=== PATIENT | female | born 1990 | race Caucasian/White ===

== ENCOUNTER 2018-07-18 22:15 | Emergency (ER) | payer OTHER ==
[~2018-07-18] VITALS: Ht 160 cm; Wt 48.0 kg
--- NOTE | 2018-07-18 22:22 | NUR ---
CALLED FOR TRIAGE. IN RESTROOM.
[2018-07-18] MEDS ORDERED: ONDANSETRON 2MG/ML, 2ML ONE (22:45)
--- NOTE | 2018-07-18 22:46 | NUR ---
Pt reports diarrhea since sat, n/v, seen at [facility] clinic today, labs drawn, no results to pt yet. Pt reports increasingly worse diarrhea, n/v. To restroom for stool sample at this time.
[2018-07-18] MEDS ORDERED: ONDANSETRON 2MG/ML, 2ML IVPush ONE (23:00)
[2018-07-18] MEDS ORDERED: SODIUM CHLORIDE FLUSH 10ML SYR IVF ONE (23:00)
[2018-07-18] MEDS ORDERED: SODIUM CHLORIDE 0.9% 1,000ML IVBOLUS ONE (23:00)
[2018-07-18 23:15] LABS: BASOPHILS # (AUTO) 0.03 x10^3/uL (0-0.1); BASOPHILS % (AUTO) 0 % (0-1); EOSINOPHILS # (AUTO) 0.07 x10^3/uL (0-0.4); EOSINOPHILS % (AUTO) 1 % (1-7); LYMPHOCYTES % (AUTO) 13 % (22-44); MD NO; MEAN CORPUSCULAR HEMOGLOBIN 29.7 pg (27.0-34.8); MEAN CORPUSCULAR HGB CONC 33.2 g/dL (32.4-35.8); MEAN CORPUSCULAR VOLUME 89.6 fL (80-100); MEAN PLATELET VOLUME 8.7 fL (7.4-10.4); MONOCYTES # (AUTO) 0.79 x10^3/uL (0.2-0.8); MONOCYTES % (AUTO) 12 % (2-9); NEUTROPHILS # (AUTO) 5.12 x10^3/uL (1.8-6.8); NEUTROPHILS % (AUTO) 74 % (42-75); PLATELET COUNT 209 x10^3/uL (130-400); RED BLOOD COUNT 4.88 x10^6/uL (3.82-5.3); RED CELL DISTRIBUTION WIDTH 13.4 % (9.6-15.2)
[2018-07-18 23:23] LABS: ALANINE AMINOTRANSFERASE 17 U/L (12-78); ALBUMIN 4.1 g/dL (3.4-5.0); ANION GAP 10 mmol/L (5-15); CALCIUM 8.5 mg/dL (8.5-10.1); CHLORIDE 105 mmol/L (98-107)
[2018-07-18 23:27] LABS: ALKALINE PHOSPHATASE 39 U/L (45-117); BILIRUBIN,TOTAL 0.8 mg/dL (0.2-1.0); TOTAL PROTEIN 6.9 g/dL (6.4-8.2)
[2018-07-18 23:38] LABS: MICROSCOPIC AUTO
--- NOTE | 2018-07-18 23:42 | NUR ---
Fluids complete, pt denies any needs/concerns, updated on wait time for labs.
[2018-07-18 23:45] LABS: CULTURE INDICATED? NO
[2018-07-19 00:25] LABS: CLOSTRIDIUM DIFFICILE ANTIGEN NEGATIVE; CLOSTRIDIUM DIFFICILE TOXIN NEGATIVE (Negative)
--- NOTE | 2018-07-19 00:41 | NUR ---
Report to Kaylee CERVANTES
--- NOTE | 2018-07-19 00:53 | NUR ---
ASSUMED CARE OF PT. AFTER REPORT FROM BILLY BLANCHARD. PT. RESTING ON GURNEY WITH NADN. VS UPDATED. PARENTS AT FOR SUPPORT. STOOL SAMPLE RESULTS PENDING. PT. DENIES NEEDS. CALL LIGHT IN REACH. ALL SAFETY MEASURES OBSERVED.
--- NOTE | 2018-07-19 01:12 | NUR ---
NEW ORDERS RECEIVED AFTER DISCUSSING B/P WITH DR. MALAVE. CALLED LAB ABOUT C-DIFF RESULTS AND THEY POSTED THEM; BOTH NEGATIVE AND REPORTED TO DR. MALAVE. PT. TO HAVE 1L NS AND RECHECK B/P. PLAN TO D/C OTHER STOOL RESULTS GET SENT OFF AND WILL NOT RESULT TONIGHT.
[2018-07-19] MEDS ORDERED: SODIUM CHLORIDE 0.9% 1,000ML IVBOLUS ONE (01:30)
[2018-07-19 01:38] VITALS: BP 102/55
[2018-07-19 07:48] LABS: CRYPTOSPORIDIUM ANTIGEN Negative (Negative)
== END 2018-07-19 01:39 | disposition home or self-care (01) ==
LOC: ED 23:54
DX: K52.9 Noninfective gastroenteritis and colitis, unspecified (principal); E86.0 Dehydration
CPT/HCPCS: 36415; 80053; 81001; 83690; 84703; 85025; 87046; 87324; 87328; 87329; 87427; 87798; 89055; 96361; 96374; 99283; J2405; J7030